=== PATIENT | male | born 1980 | race Caucasian/White ===

== ENCOUNTER 2019-10-17 13:55 | Outpatient (CLI) | payer OTHER ==
[2019-10-17 21:27] VITALS: BP 131/82
--- NOTE | 2019-10-17 21:27 | SLEEP CARE CONSULTATION ---
Information from patient questionnaire entered by Mary Alice Fisher. I have reviewed and concur with the information entered by Mary Alice Fisher. This document represents the service I personally performed and the decisions made by me, José Miguel Barrios MD, [facility]. History of Present Illness Reason for Visit: New patient Chief Complaint: reports: Unrefreshed sleep, Observed pauses in breathing, Other (sleepless nights) Duration of Symptoms: 4 years Usual bedtime: 2129 Time it takes to fall asleep: 10-30 minutes Snores at night: Yes (sometimes) Observed to quit breathing while asleep: Yes Sleeps alone due to snoring: No Number of times waking at night: 1-5 Reasons for waking at night: reports: Other (unknown) Recalls having dreams: No Usually gets out of bed at: 0600 Feels refreshed in the morning: No Morning headache: No Sleepy or fatigued during the day: Yes Ever fallen asleep while driving: Yes Takes day naps: Yes Dreams during day naps: No Prior sleep studies: No Additional HPI information: I had the pleasure of seeing Mr. Hung today regarding the possibility of him having a sleep disorder. As you know, he is a 39 year old gentleman who complains of pauses in his breathing while asleep, according to his . The patient tells me that he normally goes to bed around 9:30 pm, and it takes him approximately 10 - 20 minutes to fall asleep. He has not been told that he snores loudly or irregularly at night. He has been observed to stop breathing in his sleep. His sleeps in the same bed. He can recall waking up on the average of 1 - 5 times during the night. Most of the time he wakes up because of no apparent reason. He has never awakened because of his own snoring, choking, or having to gasp for air. There is a lot of tossing and turning in his sleep. No somniloquy (sleep talking) or somnambulism (sleep walking). Generally there is no recollection of dreams. In the morning he usually gets up out of the bed around 6 a.m. not feeling refreshed nor rested. He usually does not have a morning headache. During the day he complains of feeling sleepy and fatigued. His score on [place] Sleepiness Scale is 10 out of 24. He has fallen asleep while driving and has gone out of the gloria. He usually takes naps during the day. Upon falling asleep during the day he denies having vivid dreams. He has never had sleep paralysis, experienced cataplexy or symptoms of restless leg syndrome. He denies having impaired concentration during the day. Subjective Initial [place] Sleepiness Scale score: 10 Social History The patient's occupation is active . Patient is and lives in [place]. Have you smoked in the past 12 months: No Cigarettes per day (20/pack): 20 Years of smokin Quit date: Smoking Pack Years: 12.0 Alcohol use: Yes Alcohol amount and frequency: 4-5, 2-3 Caffeine use: Yes Caffeine amount and frequency: daily until 1200 Family History Family history of sleep disordered breathing: Yes Family Hx Sleep Apnea: Sibling: Sleep apnea - Treated Allergies and Home Medications Drug allergies reviewed: Yes Home medication list reviewed: Yes (none) Review of Systems Weight gain over past 5 years: 20 Weight loss over past 5 years: 30 Cardiovascular: denies: high blood pressure, palpitations, chest pain, irregular heart rate or pulse, leg or foot swelling, have to sleep sitting up, other Respiratory: denies: shortness of breath, wheeze, sputum production, chronic cough, other Gastrointestinal: denies: heartburn, difficulty swallowing, nausea, vomitting, diarrhea, abdominal pain, other Urinary: denies: incontinence, frequency, urgency, impotence, other Neurological: denies: headaches, seizure, head trauma, disorientation, speech dysfunction, gait or balance problems, fainting or unconsciousness, other Psychiatric: denies: Attention Deficit Hyperactivity, anxiety, depression, mood disorder, claustrophobia, other Ear/Nose/Throat: reports: nose bleeds Endocrine: reports: sluggishness Musculoskeletal: reports: joint pain, neck pain, back pain Immunologic: denies: sneezing, rash, itching, allergies to food or environment, other Physical Exam Vital signs obtained and entered by: Dr. Barrios Blood Pressure: 131/82 Cuff size: regular Heart Rate: 58 O2 Saturation: 98 Height: 6 ft 3 in Weight: 240 lb Body Mass Index: 29.9 BMI Classification: Overweight Neck circumference: 17 Mood/affect: normal HEENT: No craniofacial malformation Nostrils: patent to airflow Turbinates: normal Septum: midline Mouth and throat: narrow oropharynx Soft palate: long Hard palate: normal Uvula: normal Uvula visualization: 50% Mallampati Class II Tongue: normal in size Tonsils: small Chin and jaw: normal size and position Neck: normal w/o lymphadenopathy or thyromegaly Heart: regular rate and rhythm Lungs: clear bilaterally Abdomen: soft, non-tender Extremities: no edema or clubbing Neurologic: intact, no focal deficits Impression and Plan I spent 100% of this visit face to face with the patient with greater than 50% of this was spent time counseling the patient and coordination of care.
== END 2019-10-17 13:56 | disposition home or self-care (01) ==
LOC: SC 13:55
PROVIDERS: ATTEND Internal Medicine Pulmonary Disease
DX: R06.81 Apnea, not elsewhere classified (principal); G47.8 Other sleep disorders; G47.10 Hypersomnia, unspecified; E66.3 Overweight; Z68.29 Body mass index [BMI] 29.0-29.9, adult; Z87.891 Personal history of nicotine dependence
CPT/HCPCS: 99203; 99212

== ENCOUNTER 2020-01-30 20:24 | Outpatient (CLI) | payer OTHER | END 2020-01-30 20:25 | disposition home or self-care (01) | LOC: SC 20:24 | PROVIDERS: ATTEND Internal Medicine Pulmonary Disease | DX: R06.81 Apnea, not elsewhere classified (principal); G47.10 Hypersomnia, unspecified; R53.83 Other fatigue; G47.8 Other sleep disorders; E66.3 Overweight | CPT/HCPCS: 95810 ==

== ENCOUNTER 2020-02-01 14:47 | Outpatient (CLI) | payer OTHER ==
[2020-02-01 15:34] VITALS: BP 112/70
--- NOTE | 2020-02-01 15:34 | SLEEP CARE CONSULTATION ---
Information from patient questionnaire entered by Danni Samuel. I have reviewed and concur with the information entered by Danni Samuel. This document represents the service I personally performed and the decisions made by me, Maryann Wolff, RN, MSN, [employer]. History of Present Illness Service Date and Time: 02/01/2020 1447 Initial [place] Sleepiness Scale score: 10 (in 2019) Current [place] Sleepiness Scale score: 12 Additional HPI information: DAYO DAVE returns for follow up and results of the recently performed polysomnography. The patient was informed of the findings. I explained the pathophysiology behind obstructive sleep apnea. Patient does not have sleep apnea and was advised how weight gain could increase the risk of developing sleep apnea in the future. I strongly encouraged the patient to lose weight. Patient has snoring. Snoring can be reduced by weight loss. Weight loss is best achieved with diet consult. Patient instructed to contact PCP for referral. Snoring can also be treated with an oral appliance from a dentist. Advised to check insurance coverage. In addition, an ENT evaluation can be do to see if other treatment is indicated. Patient counseled not drink alcohol less than 4 hours before bedtime as it can increase snoring and apnea. Patient does not drink alcohol. Patient was cautioned about risks of drowsy driving until sleepiness symptoms resolve. Patient denies drowsy driving. Review of sleep schedule is 9:30-10pm Wake up 5:45 - 6am Still not refreshed in the morning when wakes even though stopped rotating shift about 5 months ago for about 3 years. ] Sleep Study - Results Polysomnography/Home Sleep Study results: The quality of the study is good. The patient had normal sleep efficiency. Except for mild sleep fragmentation, the sleep architecture was also normal. Respiratory monitoring showed no evidence of sleep disordered breathing (AHI = 0.1) or hypoxia (temi oxygen saturation of 90%). The patient slept adequately in supine position (supine AHI = 0.4; non-supine = 0.00). Snore was light in intensity. There was no significant periodic leg movement of sleep. Cardiac rhythm was normal sinus rhythm without significant arrhythmia. No abnormal behavior (parasomnia) observed during the night. Allergies and Home Medications Home medication list reviewed: No (no medications) Review of Systems Review of systems same as previous: Yes Physical Exam Blood Pressure: 112/70 Cuff size: long Heart Rate: 60 O2 Saturation: 99 Height: 6 ft 3 in Weight: 247 lb 12.8 oz (fatigues and boots ) Body Mass Index: 30.9 BMI Classification: Obese Impression and Plan 1Snoring but no significant sleep disordered breathing. Patient advised that often weight loss will reduce snoring as well as apnea risk. A boiler control technician consultation with spouse can assist with weight loss. I discussed how health risks are associated with obesity especially if abdominal fat. An oral appliance can also be used for snoring. This would require a dental consultation. Patient cautioned not to use other online appliances as can cause bite issues. A list of accredited dentists in area and one local dentist who makes oral appliances given. Patient is advised to check if insurance will cover. An ENT consult can also be helpful to determine if any other treatment is an option. He has no difficulty breathing through his nose. After some discussion, the patient would like to try weight loss to reduce snoring. For concerns about sons extra sleep needs, I advised to discuss with his PCP. Other sleep sources are [facility] and [facility]. 2. Unrefreshed sleep and intermittent fatigue, he may still be accomodating to a regular sleep schedule. If persistent fatigue, I advised following up with his PCP for further evaluation. Plan. 1. Attempt to lose weight 2. Follow up with PCP if persistent fatigue 3. follow up as needed. Visit Type: In Office Time Spent with Patient (minutes): 25 Provider Statement: I spent 100% of the Face to Face Visit with the patient with greater than 50% spent counseling the patient and coordination of care.
== END 2020-02-01 14:48 | disposition home or self-care (01) ==
LOC: SC 14:47
PROVIDERS: ATTEND Nurse Practitioner Family
DX: R06.83 Snoring (principal); G47.8 Other sleep disorders; R53.83 Other fatigue; E66.9 Obesity, unspecified; Z68.30 Body mass index [BMI] 30.0-30.9, adult
CPT/HCPCS: 99212; 99214